=== PATIENT | male | born 1995 | race Caucasian/White ===

== ENCOUNTER 2018-06-28 09:36 | Emergency (ER) | payer MEDICAID, SELFPAY ==
[2018-06-28 09:39] VITALS: BP 116/69; PULSE 77; RESP 16; TEMP 36.8; O2SAT 96
--- NOTE | 2018-06-28 09:49 | ED.GENADUL ---
Disposition Clinical Impression: Pilonidal cyst Disposition: HOME Condition: Good Instructions: Pilonidal Cyst (GEN) Additional Instructions: Apply warm compresses or sits bath as many times a day as possible. Return if you develop any worsening symptoms like fever, chills, nausea, vomiting, blood in your stool. Referrals: Queenie Ulloa MD [ [facility] STAFF PHYSICIAN] - 07/12/18 3:15 am Forms: Work Release Medical Decision Making - Medical Decision Making I encouraged he stop smoking if not completely at least prior to surgery. I advised to use warm compresses and sits bath. Ibuprofen for pain. 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 Provided date and time of appointment with surgical services. Advised to return if the symptoms worsen. Advised to correct phone number with registration to assure proper f/u. - Differential Diagnosis Abcess, Pilonidal cyst, History of Present Illness - General Chief complaint: Nk/Back Pain Stated complaint: BACK PAIN Time Seen by Provider: 06/28/18 09:46 Source: patient, RN notes reviewed Mode of arrival: ambulatory Limitations: no limitations - History of Present Illness Initial comments: 23 y/o male here with c/o pain from pilonidal cyst. He was seen here a little over one month ago on 04/22/18 and referred to our surgical services for f/u. I called over and talked with them and they did try to call him but he had no message machine. I apprised him of this and he verbally understood. I then asked him if the number we have on record is still the [phone] and told me no it was his ex-GF. He gave me his new number as [phone]. I advised he update with registration his new number. He has had the cyst drained at the [place] [facility] a month or so ago. He denies any fever or chills, N/V/D, cp, or blood in his stool. His GF tells me the cyst drains scant drainage she notices in the am on the sheets. -: month(s) Location: buttocks Severity scale (1-10): 8 Quality: aching Consistency: constant Improves with: none Worsens with: none Associated Symptoms: other (drainage) Treatments Prior to Arrival: none - Related Data Unknown [No Known Home Meds] 05/27/17 Allergies Allergy/AdvReac Type Severity Reaction Status Date / Time No Known Allergies Allergy Unverified 04/21/18 19:53 Review of Systems Constitutional: no symptoms reported Respiratory: no symptoms reported Cardiovascular: denies: chest pain Gastrointestinal: denies: abdominal pain Genitourinary: denies: dysuria Musculoskeletal: other (from cyst) Skin: other (drainage from cyst on coccyx) Past Medical History - Past Medical History Medical history: no medical history Surgical history: no surgical history Psychiatric history: attention deficit, depression Family history: no significant family history - Social History Alcohol use: recent Drug use: marijuana General Exam - General Limitations: no limitations General appearance: alert, in no apparent distress - Head Head exam: Present: atraumatic, normal inspection - Eye Eye exam: Present: normal apperance - Neck Neck exam: Present: normal inspection - Respiratory Respiratory exam: Present: normal lung sounds bilaterally - Cardiovascular Cardiovascular Exam: Present: regular rate, normal heart sounds - GI/Abdominal GI/Abdominal exam: Present: soft, normal bowel sounds. Absent: distended, tenderness, guarding, rebound, rigid - Extremities Exam Extremities exam: Present: full ROM - Back Exam Back exam: Present: full ROM, other (1CM hole, looks like from previous lancing noted to the top of his coccyx. Their is no drainage or redness. There are two scars below the hole which looks like previous I&D sites but he tells me they are from spontaneous drainage portals. Again no redness or drainage. I do palpate a small cord like cyst below the opening. Non tender to palpate. ). Absent: tenderness, CVA tenderness (R), CVA tenderness (L), muscle spasm, paraspinal tenderness, vertebral tenderness, rash noted - Skin Skin exam: Present: warm, dry, other (hole from previous I&D to top of coccyx. ). Absent: erythema Course Vital Signs - 24 hr 06/28/18 09:39 Temperature 36.8 C Pulse 77 Respiratory 16 Rate Blood Pressure 116/69 Pulse Oximetry 96
== END 2018-06-28 10:16 | disposition home or self-care (01) ==
LOC: ER 09-08 13:07
PROVIDERS: Emergency Provider Student in an Organized Health Care Education/Training Program; PCP Nurse Practitioner Family
DX: L05.91 Pilonidal cyst without abscess (principal)
CPT/HCPCS: 99282

== ENCOUNTER 2018-08-18 08:22 | Emergency (ER) | payer MEDICAID, SELFPAY ==
[2018-08-18 08:26] VITALS: BP 127/71; PULSE 67; RESP 16; TEMP 36.7; O2SAT 96
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
[2018-08-18] MEDS: Benzocaine 20% 60 ML CAN (09:30)
[2018-08-18] MEDS: Clindamycin 150 MG CAP 450 MG PO (09:53)
[2018-08-18] MEDS: Ibuprofen 600 MG TAB PO (09:53)
== END 2018-08-18 09:53 | disposition home or self-care (01) ==
PROVIDERS: Emergency Provider Physician Assistant; PCP Nurse Practitioner Family
DX: L02.01 Cutaneous abscess of face (principal)
CPT/HCPCS: 10060

== ENCOUNTER 2018-09-09 12:47 | Emergency (ER) | payer MEDICAID, SELFPAY ==
[2018-09-09 12:49] VITALS: BP 124/77; PULSE 78; RESP 14; TEMP 36.6; O2SAT 95
== END 2018-09-09 14:35 ==
PROVIDERS: PCP Nurse Practitioner Family
DX: Z53.21 Procedure and treatment not carried out due to patient leaving prior to being seen by health care provider (principal)

== ENCOUNTER 2018-11-09 15:34 | Emergency (ER) | payer MEDICAID, SELFPAY ==
[2018-11-09 15:41] VITALS: BP 127/68; PULSE 95; RESP 16; TEMP 37; O2SAT 97
--- NOTE | 2018-11-09 15:44 | W.ED.GENAD ---
Discharge Plan Disposition Patient Disposition: HOME Condition: Stable Discharge Details Chief Complaint: Abd Prob Clinical Impression: Mesenteric adenitis Primary Care Provider: Kellie Jacobson ED Provider: Conner Briceno Home Meds and New Rx's Prescriptions: New ondansetron HCl [Zofran] 4 mg tablet 4 mg PO TID PRN (Reason: nausea and vomiting) 5 Days Qty: 20 RF: 0 ciprofloxacin HCl 500 mg tablet 500 mg PO BID Qty: 14 RF: 0 Continued Suboxone 4-1 mg Film 14 mg SUBLINGUAL DAILY RF: 0 Discharge Instructions Instructions: Mesenteric Adenitis (ED) Additional Instructions: Follow up with your primary care provider next week you can take 1000mg tylenol and 600mg ibuprofen every 6 hours for pain as needed return to the emergency department for persistent vomit or new symptoms such as difficulty breathing Medical Decision Making 23 yo male on subuxone with no chronic medical problems per him comes in with right sided upper and lower abdominal pain since waking up this morning with nausea, no vomit or fevers, no chest pain or sob. No testicle pain or swelling or tenderness. Has right upper and lower abdominal pain on exam without guarding, no chaney's sign. Will eval for pancreatitis and hepatitis and obtian ct to eval for entities such as appendicitis. labs show no significant pathology or changes from baseline. Remains stable. CT shows likely mesenteric adenititis. No guarding on reexam and only mild rlq pain. Feel he is safe for d/c, advised f/u with pcp and return precautions Differential Diagnosis appendicitis, pancreatitis, hepatitis, cholecystitis Imaging Data Radiologic Study: Attestation: I personally reviewed and interpreted this imaging study as follows: Imaging: CT Scan Radiologist's impression: 1. Prominent mesenteric nodes, see above comments. 2. Mild bilateral inguinal adenopathy. 3. Mild intrahepatic and extrahepatic biliary ductal dilatation, with the common bile duct up to 6 mm. Correlate clinically. Lab Data Lab results reviewed: Yes I reviewed the patient's lab results. HPI General Mode of arrival: ambulatory. Date/Time Provider Initiated Documentation: 11/09/18 15:35. Limitations to Documentation: no limitations. Information obtained by: patient. History of Present Illness 23 year old M presents to the emergency department with the chief complaint of abdominal pain, described as moderate, with intensity rated at 6. and is localized to the abdomen. Patient reports no radiation. Patient started experiencing this hour(s) (8) and it has been constant. No exacerbating factors reported . Patient did receive the following treatments prior to arrival, none Related Data Home Medications Medication Instructions Recorded Confirmed Suboxone 14 mg SUBLINGUAL DAILY 08/18/18 11/09/18 ciprofloxacin HCl 500 mg PO BID #14 tab 11/09/18 ondansetron HCl [Zofran] 4 mg PO TID PRN 5 Days #20 tab 11/09/18 Previous Rx's Medication Instructions Recorded ciprofloxacin HCl 500 mg PO BID #14 tab 11/09/18 ondansetron HCl [Zofran] 4 mg PO TID PRN 5 Days #20 tab 11/09/18 Allergies Allergy/AdvReac Type Severity Reaction Status Date / Time No Known Allergies Allergy Unverified 11/09/18 15:43 General Stated Complaint: Abd Prob MISTY: 3 Review of Systems Review of Systems All systems reviewed & are unremarkable except as noted in HPI and below Constitutional Denies chills, Denies fever(s) and Denies weakness ENT Denies change in voice Cardiovascular Denies chest pain and Denies dyspnea Respiratory Denies dyspnea Gastrointestinal Denies abdominal pain and Denies vomiting Genitourinary Denies dysuria Musculoskeletal Denies joint swelling Integumentary/Breasts Denies rash Neurologic Denies weakness Endocrine Denies cold intolerance and Denies heat intolerance [facility] Medical History Substance use disorder Surgical History Hernia repair Family History Mother Essential hypertension Father No problems noted. Sister No problems noted. Sister No problems noted. Brother No problems noted. Social History Smoking/Tobacco Use Status: Current every day Exam Const General: no acute distress Orientation: alert [place] Head: normal to inspection Ears: external ears normal General nose exam: external nose normal Mouth: moist mucous membranes Eyes General: appearance normal, both eyes and all related structures Neck Neck: normal visual inspection Resp Effort & Inspection: normal respiratory effort and able to speak in complete sentences Cardio Rate: regular rate GI Inspection: normal to inspection and no abdominal wall ecchymosis Skin General skin exam: no rashes or lesions noted Neuro General: alert and oriented x3 Extrem General: normal to inspection Psych Mental Status: mental status grossly normal Course Vital Signs Temperature 37 C 11/09/18 15:41 Pulse 95 H 11/09/18 15:41 Respiratory Rate 16 11/09/18 15:41 Blood Pressure 127/68 11/09/18 15:41 Pulse Oximetry 97 11/09/18 15:41 Temperature 37 C 11/09/18 15:41 Temperature Source Skin 11/09/18 15:41 Pulse 95 H 11/09/18 15:41 Respiratory Rate 16 11/09/18 15:41 Respiratory Effort Non-Labored 11/09/18 15:41 Blood Pressure 127/68 11/09/18 15:41 Blood Pressure Position Sitting 11/09/18 15:41 Pulse Oximetry 97 11/09/18 15:41 Oxygen Delivery Method Room Air 11/09/18 15:41 Oxygen Flow Rate 0 11/09/18 15:41 Pain Level 10 11/09/18 15:41
--- NOTE | 2018-11-09 15:48 | DI.CT_ITS ---
SYMPTOM/DIAGNOSIS: RIGHT SIDED ABDOMINAL PAIN CT ABDOMEN AND PELVIS: The study was carried out with intravenous administration of 100 ml Omnipaque 350. Small regions of subsegmental atelectasis are noted in the lung bases. No hepatic mass is demonstrated. Evaluation of the gallbladder and bile ducts reveals mild intrahepatic and extrahepatic biliary ductal dilatation with the common duct caliber of 6 mm which is top limits of normal. The pancreas is normal. The spleen is normal. The adrenals are normal. The kidneys are normal. The stomach is normal. There is no evidence of obstruction or localized bowel abnormality or mucosal thickening. There is nothing to suggest an acute appendix. The bladder and reproductive organs are unremarkable. A small amount of free pelvic fluid is demonstrated in this patient. There is no acute bony abnormality. The soft tissues are unremarkable. There is no aortic aneurysm. Prominent lymph nodes at the small bowel mesentery and right lower quadrant are seen. These could certainly be reactive but an infectious or inflammatory process such as mesenteric adenitis cannot be entirely excluded. Clinical correlation regarding these findings is recommended. There is also a note made on this patient of mild bilateral inguinal adenopathy. SUMMARY: Mesenteric nodes and inguinal nodes are demonstrated. There is mild intrahepatic and extrahepatic biliary ductal dilatation with the common duct caliber measuring 6 mm . Clinical correlation of these findings is recommended.
--- NOTE | 2018-11-09 15:53 | ED.GENADUL_ITS ---
Discharge Plan Disposition Patient Disposition: HOME Condition: Stable Discharge Details Chief Complaint: Abd Prob Clinical Impression: Mesenteric adenitis Primary Care Provider: Kellie Jacobson ED Provider: Conner Briceno Home Meds and New Rx's Prescriptions: New ondansetron HCl [Zofran] 4 mg tablet 4 mg PO TID PRN (Reason: nausea and vomiting) 5 Days Qty: 20 RF: 0 ciprofloxacin HCl 500 mg tablet 500 mg PO BID Qty: 14 RF: 0 Continued Suboxone 4-1 mg Film 14 mg SUBLINGUAL DAILY RF: 0 Discharge Instructions Instructions: Mesenteric Adenitis (ED) Additional Instructions: Follow up with your primary care provider next week you can take 1000mg tylenol and 600mg ibuprofen every 6 hours for pain as needed return to the emergency department for persistent vomit or new symptoms such as difficulty breathing Medical Decision Making 23 yo male on subuxone with no chronic medical problems per him comes in with right sided upper and lower abdominal pain since waking up this morning with nausea, no vomit or fevers, no chest pain or sob. No testicle pain or swelling or tenderness. Has right upper and lower abdominal pain on exam without guarding, no chaney's sign. Will eval for pancreatitis and hepatitis and obtian ct to eval for entities such as appendicitis. labs show no significant pathology or changes from baseline. Remains stable. CT shows likely mesenteric adenititis. No guarding on reexam and only mild rlq pain. Feel he is safe for d/c, advised f/u with pcp and return precautions Differential Diagnosis appendicitis, pancreatitis, hepatitis, cholecystitis Imaging Data Radiologic Study: Attestation: I personally reviewed and interpreted this imaging study as follows: Imaging: CT Scan Radiologist's impression: 1. Prominent mesenteric nodes, see above comments. 2. Mild bilateral inguinal adenopathy. 3. Mild intrahepatic and extrahepatic biliary ductal dilatation, with the common bile duct up to 6 mm. Correlate clinically. Lab Data Lab results reviewed: Yes I reviewed the patient's lab results. HPI General Mode of arrival: ambulatory . Date/Time Provider Initiated Documentation: 11/09/18 15:35 . Limitations to Documentation: no limitations . Information obtained by: patient . History of Present Illness 23 year old M presents to the emergency department with the chief complaint of abdominal pain, described as moderate, with intensity rated at 6. and is localized to the abdomen. Patient reports no radiation. Patient started experiencing this hour(s) (8) and it has been constant. No exacerbating factors reported . Patient did receive the following treatments prior to arrival, none Related Data Home Medications Medication Instructions Recorded Confirmed Suboxone 14 mg SUBLINGUAL DAILY 08/18/18 11/09/18 ciprofloxacin HCl 500 mg PO BID #14 tab 11/09/18 ondansetron HCl [Zofran] 4 mg PO TID PRN 5 Days #20 tab 11/09/18 Previous Rx's Medication Instructions Recorded ciprofloxacin HCl 500 mg PO BID #14 tab 11/09/18 ondansetron HCl [Zofran] 4 mg PO TID PRN 5 Days #20 tab 11/09/18 Allergies Allergy/AdvReac Type Severity Reaction Status Date / Time No Known Allergies Allergy Unverified 11/09/18 15:43 General Stated Complaint: Abd Prob MISTY: 3 Review of Systems Review of Systems All systems reviewed & are unremarkable except as noted in HPI and below Constitutional Denies chills, Denies fever(s) and Denies weakness ENT Denies change in voice Cardiovascular Denies chest pain and Denies dyspnea Respiratory Denies dyspnea Gastrointestinal Denies abdominal pain and Denies vomiting Genitourinary Denies dysuria Musculoskeletal Denies joint swelling Integumentary/Breasts Denies rash Neurologic Denies weakness Endocrine Denies cold intolerance and Denies heat intolerance [facility] Medical History Substance use disorder Surgical History Hernia repair Family History Mother Essential hypertension Father No problems noted. Sister No problems noted. Sister No problems noted. Brother No problems noted. Social History Smoking/Tobacco Use Status: Current every day Exam Const General: no acute distress Orientation: alert HENPR Head: normal to inspection Ears: external ears normal General nose exam: external nose normal Mouth: moist mucous membranes Eyes General: appearance normal, both eyes and all related structures Neck Neck: normal visual inspection Resp Effort & Inspection: normal respiratory effort and able to speak in complete sentences Cardio Rate: regular rate GI Inspection: normal to inspection and no abdominal wall ecchymosis Skin General skin exam: no rashes or lesions noted Neuro General: alert and oriented x3 Extrem General: normal to inspection Psych Mental Status: mental status grossly normal Course Vital Signs Temperature 37 C 11/09/18 15:41 Pulse 95 H 11/09/18 15:41 Respiratory Rate 16 11/09/18 15:41 Blood Pressure 127/68 11/09/18 15:41 Pulse Oximetry 97 11/09/18 15:41 Temperature 37 C 11/09/18 15:41 Temperature Source Skin 11/09/18 15:41 Pulse 95 H 11/09/18 15:41 Respiratory Rate 16 11/09/18 15:41 Respiratory Effort Non-Labored 11/09/18 15:41 Blood Pressure 127/68 11/09/18 15:41 Blood Pressure Position Sitting 11/09/18 15:41 Pulse Oximetry 97 11/09/18 15:41 Oxygen Delivery Method Room Air 11/09/18 15:41 Oxygen Flow Rate 0 11/09/18 15:41 Pain Level 10 11/09/18 15:41
[2018-11-09] MEDS: Ondansetron 4 MG/2 ML VIAL IVP (16:05)
[2018-11-09] MEDS: Ketorolac 15 MG/ML VIAL IVP (16:05)
--- NOTE | 2018-11-09 16:16 | NUR.NOTE ---
Nursing Note: Pt with abdomen tenderness to right upper and lower quadrant and umbilicus region. denies any vomiting but reports nausea. medicated as ordered. off unit at this time to CT
[2018-11-09] MEDS: Omnipaque 350 MG/ML 100 ML BTL IJ (16:31)
[2018-11-09 16:49] LABS: Abs Immature Grans 0.04 k/cumm (0.0-0.09); Absolute Eosinophil Count 0.51 k/cumm (0.0-0.7); Absolute Lymphocyte Count 2.82 k/cumm (1.2-3.4); Absolute Monocyte Count 1.05 k/cumm (0.11-0.7); Basophils % 0.7; Eosinophils % 3.7; HCT 42.9 % (40.0-50.0); HGB 14.3 g/dL (13.5-17.5); Immature Grans % 0.3; Lymphocytes % 20.4; Mean Corp. HGB Concentration 33.3 g/dL (32.0-36.0); Mean Corpuscular Hemoglobin 26.3 pg (27.0-33.0); Mean Corpuscular Volume 78.9 fL (80-95); Mean Platelet Volume 9.5 fL (8.0-11.0); Monocytes % 7.6; Neutrophils % 67.3; Platelet Count 288 x1000/uL (130-400); RBC 5.44 m/cumm (4.50-6.00); RBC Distribution Width 13.7 % (11.8-14.1); White Blood Cell Count 13.83 k/cumm (4.4-10.8)
[2018-11-09 16:50] LABS: Absolute Neutrophil Count 9.31 k/cumm (1.2-6.7)
[2018-11-09 17:09] VITALS: BP 130/69; PULSE 70; RESP 16; TEMP 37; O2SAT 97
--- NOTE | 2018-11-09 17:10 | NUR.NOTE ---
Nursing Note: resting in bed. flat affect. returned from CT, awaiting results. will continue to monitor
[2018-11-09 17:11] LABS: ALT 29 U/L (12-78); AST 16 U/L (15-37); Albumin 3.6 g/dL (3.4-5.0); Alkaline Phosphatase 95 U/L (46-116); Anion Gap 9.3 mmol/L (3-11); BUN 12 mg/dL (7-18); Bilirubin, Direct 0.13 mg/dL (0.00-0.20); Bilirubin, Total 0.3 mg/dL (0.2-1.0); CO2 27.7 mmol/L (21.0-32.0); Calcium 9.4 mg/dL (8.5-10.1); Chloride 100 mmol/L (98-107); Glucose 86 mg/dL (70-100); Lipase 55 U/L (73-393); Magnesium 1.6 mg/dL (1.8-2.4); Potassium 3.7 mmol/L (3.5-5.1); Sodium 137 mmol/L (136-145); Total Protein 7.1 g/dL (6.4-8.2)
--- NOTE | 2018-11-09 17:43 | DI.VRAD_ITS ---
EXAM: CT Abdomen and Pelvis With Contrast EXAM DATE/TIME: 11/09/2018 3:49 PM CLINICAL HISTORY: 23 years old, male; Pain; Abdominal pain TECHNIQUE: Axial computed tomography images of the abdomen and pelvis with intravenous contrast. Coronal and sagittal reformatted images were created and reviewed. COMPARISON: CT CHEST ABD PELVIS WITH CONTRAST 12/10/2013 5:59 PM FINDINGS: Lower thorax: Subpleural atelectasis of the dependent portions of the lungs. ABDOMEN: Liver: Normal. No mass. Gallbladder and bile ducts: Mild intrahepatic and extrahepatic biliary ductal dilatation, with the common bile duct up to 6 mm. Pancreas: Normal. No ductal dilation. Spleen: Normal. No splenomegaly. Adrenals: Normal. No mass. Kidneys and ureters: Normal. No hydronephrosis. Stomach and bowel: Normal. No obstruction. No mucosal thickening. Appendix: No evidence of appendicitis. PELVIS: Bladder: Unremarkable as visualized. Reproductive: Unremarkable as visualized. ABDOMEN and PELVIS: Intraperitoneal space: Small amount of free pelvic fluid. Bones/joints: No acute fracture. No dislocation. Soft tissues: Unremarkable. Vasculature: Normal. No abdominal aortic aneurysm. Lymph nodes: Prominent lymph nodes at the small bowel mesentery and right lower quadrant. These may be reactive, but an infectious, or inflammatory process such as mesenteric adenitis cannot be excluded. Correlate clinically. Mild bilateral inguinal adenopathy. IMPRESSION: 1. Prominent mesenteric nodes, see above comments. 2. Mild bilateral inguinal adenopathy. 3. Mild intrahepatic and extrahepatic biliary ductal dilatation, with the common bile duct up to 6 mm. Correlate clinically. Dictated and Authenticated by: Nakul Ozuna MD. Ordering:CHRISTIANO Prieto MD
== END 2018-11-09 17:55 | disposition home or self-care (01) ==
PROVIDERS: Emergency Provider Emergency Medicine; PCP Nurse Practitioner Family
DX: I88.0 Nonspecific mesenteric lymphadenitis (principal)
CPT/HCPCS: 36415; 80053; 80076; 83690; 96374; 96375; 99285; 74177; 83735; 85025; 99284; J1885; J2405; J3490

== ENCOUNTER 2018-11-18 11:28 | Outpatient (REF) | payer MEDICAID, SELFPAY ==
[2018-11-21 13:55] LABS: GC Result Positive; Specimen Description URINE
[2018-11-21 16:59] LABS: Chlamydia Result Positive
== END 2018-11-18 11:48 ==
LOC: LBN 11:28
PROVIDERS: PCP Nurse Practitioner Family; Visit Provider Nurse Practitioner Women's Health
DX: Z11.3 Encounter for screening for infections with a predominantly sexual mode of transmission (principal)
CPT/HCPCS: 87491; 87591

== ENCOUNTER 2022-11-25 15:07 | Emergency (ER) | payer MEDICAID, SELFPAY ==
[2022-11-25 15:33] VITALS: BP 129/67; PULSE 54; RESP 16; TEMP 37.3; O2SAT 99
--- NOTE | 2022-11-25 16:06 | ED.GENADUL_ITS ---
Discharge Plan Disposition Patient Disposition: Home Condition: Stable Discharge Details Clinical Impression: Pilonidal cyst Primary Care Provider: Cesilia Velasquez ED Provider: Chana Moreno Home Meds and New Rx's Prescriptions: New amoxicillin-pot clavulanate 875-125 mg tablet 1 tab PO BID Qty: 20 0RF Continued Suboxone 4-1 mg Film 14 mg SUBLINGUAL DAILY Discharge Instructions Additional Instructions: take antibiotics as prescribed follow-up with surgery warm compresss return earlier with new or worsening complaints Stand Alone Forms: Work Release Referrals: Cesilia Velasquez [Primary Care Provider] - Jose Valera MD [ [facility] STAFF PHYSICIAN] - Discharge Data Discharge Date/Time-TO BE ENTERED AT DEPARTURE: 11/25/22 16:15 Medical Decision Making This 27-year-old male chronically draining pilonidal cyst will likely need removal of capsule Referral to surgery supplied Placed on Augmentin for pilonidal cyst Ibuprofen and Tylenol for pain Warm compresses encouraged No indication for emergent drainage at this time, no signs or symptoms consistent with systemic infection Return precautions reviewed and patient expressed understanding Medical Records Medical records reviewed: Yes I reviewed the patient's medical records. Lab Data Lab results reviewed: Yes I reviewed the patient's lab results. HPI General Date/Time Provider Initiated Documentation: 11/25/22 15:31 . HPI Narrative: This 27-year-old gentleman with history of depression, oppositional defiant disorder presents with report of pilonidal cyst recurrently in the past several years states it drains chronically. Has not been on antibiotics. Denies any trauma, fever, chills. Denies history of diabetes or recent IV drug abuse. Related Data Home Medications Medication Instructions Recorded Confirmed buprenorphine 4 mg-naloxone 1 mg 14 mg sublingual DAILY 08/18/18 11/09/18 sublingual film (Suboxone) amoxicillin 875 mg-potassium 1 tab PO BID #20 tabs 11/25/22 clavulanate 125 mg tablet Previous Rx's Medication Instructions Recorded amoxicillin 875 mg-potassium 1 tab PO BID #20 tabs 11/25/22 clavulanate 125 mg tablet Allergies Allergy/AdvReac Type Severity Reaction Status Date / Time No Known Allergies Allergy Unverified 11/09/18 15:43 General Stated Complaint: Cellulitis MISTY: 4 Review of Systems All systems reviewed & are unremarkable except as noted in HPI and below PFSH All Active Problems (Updated 11/25/22 @ 16:08 by FE Perez) Pilonidal cyst (Acute) Depression (Chronic) Tobacco use disorder (Acute 02/25/18) Substance use disorder (Acute) Opioids including IVDU MAT with Suboxone through [facility] since 11/2017 per pt PTSD (post-traumatic stress disorder) (Acute) Oppositional defiant disorder (Acute) Adjustment disorder with depressed mood (Acute) ADD (attention deficit disorder) (Acute) Sinusitis (Acute) Medical History (Updated 11/25/22 @ 16:08 by FE Perez) Bilateral otitis media (03/25/17) Strep pharyngitis Substance use disorder Including IVDU Surgical History Hernia repair Family History Mother Essential hypertension Father No problems noted. Sister No problems noted. Sister No problems noted. Brother No problems noted. 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 [employer] Pets and animals: No Sexually active: Yes Do you think of yourself as: straight/heterosexual Current gender identity: male What is your relationship status?: never How often do you talk on the phone with friends or family?: three or more times per week How often do you get together with friends or relatives?: three or more times per week Panel score (0-1 are the most socially isolated patients): 1 Seatbelt use: never Helmet use: Yes Helmet use: sometimes Drive 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 Pilonidal cyst noted, no fluctuance, scant drainage, slight overlying erythema without lymphangitis Course Vital Signs Vital signs: Vital Signs Temperature 37.3 C 11/25/22 15:33 Pulse 54 L 11/25/22 15:33 Respiratory Rate 16 11/25/22 15:33 Blood Pressure 129/67 11/25/22 15:33 Pulse Oximetry 99 11/25/22 15:33 Temperature 37.3 C 11/25/22 15:33 Temperature Source Skin 11/25/22 15:33 Pulse 54 L 11/25/22 15:33 Respiratory Rate 16 11/25/22 15:33 Respiratory Effort 11/25/22 15:39 Blood Pressure 129/67 11/25/22 15:33 Blood Pressure Position Sitting 11/25/22 15:33 Pulse Oximetry 99 11/25/22 15:33 Oxygen Delivery Method Room Air 11/25/22 15:33 Oxygen Flow Rate 0 11/25/22 15:33 Pain Level 7 11/25/22 15:33
--- NOTE | 2022-11-26 11:55 | PDOC.ERCMACT ---
- If Service Date Differs Date of service: 11/26/22 Time of Service: 11:55 Care Management Activity Note Eitan is seen in the ED for a pilonidal cyst. At the request of ED provider, CM coordinates a referral to [facility] to assist patient in obtaining an appointment for further evaluation and treatment. Eitan has Medicaid for insurance.
== END 2022-11-25 16:15 | disposition home or self-care (01) ==
PROVIDERS: Emergency Provider Physician Assistant; PCP Nurse Practitioner Family
DX: L05.91 Pilonidal cyst without abscess (principal)
CPT/HCPCS: 99283; 99284

== ENCOUNTER 2025-04-07 20:04 | Emergency (ER) | payer SELFPAY ==
[2025-04-07 20:06] VITALS: BP 126/77; PULSE 68; RESP 16; O2SAT 97
[2025-04-07 20:12] VITALS: BP 127/77; PULSE 68; RESP 16; TEMP 36.7; O2SAT 97
--- NOTE | 2025-04-07 20:17 | W.ED.GENAD ---
Discharge Plan Disposition Patient Disposition: Home Condition: Stable Discharge Details Clinical Impression: Acute conjunctivitis of left eye ED Provider: Conner Briceno Home Meds and New Rx's Prescriptions: Continued acetaminophen [Tylenol] 325 mg capsule 650 mg PO ONCE PRN ibuprofen 200 mg capsule 800 mg PO Q6H PRN Discharge Instructions Additional Instructions: Use the eye ointment twice a day for 7 days or until the tube is gone. If not improving this week follow-up with either your primary care provider or you can try calling [facility]. If you feel more ill, have new symptoms such as high fevers or severe worsening pain return to the emergency department for reevaluation. HPI General Mode of arrival: ambulatory. Date/Time Provider Initiated Documentation: 04/07/25 20:06. Limitations to Documentation: no limitations. Information obtained by: patient. History of Present Illness 30 year old M presents to the emergency department with the chief complaint of left eye redness/discharge, described as moderate, Patient started experiencing this day(s) (3) and it has been constant. No relieving factors improve symptom(s), No exacerbating factors reported . Patient notes no other symptoms.. Patient did receive the following treatments prior to arrival, none Related Data Home Medications ?Medication ?Instructions ?Recorded ?Confirmed acetaminophen 325 mg capsule 650 mg PO ONCE PRN 12/03/22 04/07/25 (Tylenol) ibuprofen 200 mg capsule 800 mg PO Q6H PRN 12/03/22 04/07/25 Allergies Allergy/AdvReac Type Severity Reaction Status Date / Time No Known Allergies Allergy Verified 04/07/25 20:10 General Stated Complaint: EyeProblem MISTY: 4 Review of Systems All systems reviewed & are unremarkable except as noted in HPI and below Constitutional Constitutional: Denies chills, Denies fever(s) and Denies weakness Eyes Eyes: Reports eye discharge and Reports irritation Cardiovascular Cardiovascular: Denies chest pain and Denies dyspnea Respiratory Respiratory: Denies cough and Denies dyspnea Gastrointestinal Gastrointestinal: Denies abdominal pain, Denies nausea and Denies vomiting Neurologic Neurologic: Denies weakness Psychiatric Psychiatric: Denies depression Exam Const General: no acute distress Orientation: alert HENMT Head: normal to inspection Ears: external ears normal General nose exam: external nose normal Mouth: moist mucous membranes Eyes Periorbital: periorbital findings normal Eyelids: eyelids normal Conjunctivae: abnormal conjunctivae Neck Neck: normal visual inspection Resp Effort & Inspection: normal respiratory effort and able to speak in complete sentences Cardio Rate: regular rate Skin General skin exam: no rashes or lesions noted Neuro General: patient alert and patient oriented x3 Extrem General: normal to inspection Psych Mental Status: mental status grossly normal Course Vital Signs Vital signs: Vital Signs Pulse 68 04/07/25 20:06 Respiratory Rate 16 04/07/25 20:06 Blood Pressure 126/77 04/07/25 20:06 Pulse Oximetry 97 04/07/25 20:06 Pulse 68 04/07/25 20:06 Respiratory Rate 16 04/07/25 20:06 Blood Pressure 126/77 04/07/25 20:06 Blood Pressure Position Sitting 04/07/25 20:06 Pulse Oximetry 97 04/07/25 20:06 Oxygen Delivery Method Room Air 04/07/25 20:06 Oxygen Flow Rate 0 04/07/25 20:06 Pain Level 5 04/07/25 20:06 Medical Decision Making 30-year-old male comes in with several days of worsening left eye redness and intermittent discharge. Denies any changes in vision, no trauma to the eye or fevers. Patient has well-appearing on exam. He has no periorbital swelling, his left conjunctiva is erythematous with some greenish discharge at the superior portion of the eye. He has full range of motion of the eyes with no deep eye pain. Pupils are equal and reactive to light. Exam findings are consistent with conjunctivitis and given his right eye is completely normal I suspect bacterial conjunctivitis and will treat with erythromycin ointment. He will follow-up with either [facility] eye care or his PCP if not improving this week and return precautions given Differential Diagnosis Differential Diagnosis: Conjunctivitis, viral versus bacterial conjunctivitis Quality:SDOH Health Related Social Needs: No Data to Display PFSH All Active Problems (Updated 04/07/25 @ 20:19 by Conner Briceno MD) Acute conjunctivitis of left eye (Acute) Pilonidal cyst (Chronic) Depression (Chronic) Tobacco use disorder (Acute 02/25/18) Substance use disorder (Acute) Opioids including IVDU MAT with Suboxone through [facility] since 11/2017 per pt PTSD (post-traumatic stress disorder) (Acute) Oppositional defiant disorder (Acute) Adjustment disorder with depressed mood (Acute) ADD (attention deficit disorder) (Acute) Sinusitis (Acute) Medical History (Updated 04/07/25 @ 20:19 by Conner Briceno MD) Bilateral otitis media (03/25/17) Substance use disorder Including IVDU Strep pharyngitis Surgical History Hernia repair Family History Mother Essential hypertension Father No problems noted. Sister No problems noted. Sister No problems noted. Brother No problems noted. Social History (Updated 11/26/22 @ 08:50 by Delia Bolivar) Smoking/Tobacco Use Status: Current every day Tobacco Type: cigarettes Tobacco: How many years used: 12 Quit status: not considering quitting Smoking risk assessment performed?: Yes Alcohol Intake: current Alcohol Intake frequency: holidays/special occasions only Drug use: Daily Substance use type: former substance user and marijuana Adopted: No Caregiver/Support person: No Foster care: No Household members: significant other, family and children Housing: house Number of Children: 3 Do you need help understanding health information?: Rarely 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 [employer] Pets and animals: No Sexually active: Yes Do you think of yourself as: straight/heterosexual Current gender identity: male What is your relationship status?: never How often do you talk on the phone with friends or family?: three or more times per week How often do you get together with friends or relatives?: three or more times per week Panel score (0-1 are the most socially isolated patients): 1 Seatbelt use: never Helmet use: Yes Helmet use: sometimes Drive intox or ride w/intox lyft driver: No Do you feel safe at home: Yes Do you feel safe in your relationship?: Yes
[2025-04-07] MEDS: Erythromycin Ophth Oint 3.5 GM TUBE OP (20:23)
== END 2025-04-07 20:31 | disposition home or self-care (01) ==
LOC: ER 20:30
PROVIDERS: Emergency Provider Emergency Medicine
DX: H10.32 Unspecified acute conjunctivitis, left eye (principal)
CPT/HCPCS: 99283